=== PATIENT | female | born 1940 | race African-American/Black ===

== ENCOUNTER 2020-04-23 06:28 | Inpatient (IN) | payer MEDICARE, MEDICAID ==
[~2020-04-23] VITALS: Ht 160 cm; Wt 66.2 kg
[2020-04-23 07:50] LABS: BASOPHILS % 0.7 % (0.0-2.0); EOSINOPHILS % 3.2 % (0.0-5.0); HEMOGLOBIN. 12.6 g/dL (12.0-16.0); LYMPHOCYTES % 21.8 % (20.0-50.0); MEAN CORPUSCULAR HEMOGLOBIN 31.6 pg (28.0-32.0); MEAN CORPUSCULAR VOLUME 95.5 fL (81.0-99.0); MEAN PLATELET VOLUME 7.8 fl (7.4-10.4); MONOCYTES % 12.2 % (2.0-8.0); NEUTROPHILS % 62.1 % (40.0-76.0); PLATELET 179 x1000/uL (130-400); RED BLOOD CELL COUNT 3.98 mill/uL (4.2-5.4); RED CELL DISTRIBUTION WIDTH 15.4 % (11.6-14.6)
[2020-04-23 07:57] LABS: CHLORIDE 113 mEq/L (98-107)
[2020-04-23] MEDS ORDERED: ASPIRIN 325MG EC TABLET PO ONE (08:30)
[2020-04-23 09:27] LABS: CLARITY URINE CLOUDY (CLEAR); COLOR URINE YELLOW (YELLOW); KETONES URINE TRACE (NEGATIVE); LEUKOCYTE ESTERASE URINE 2+ (NEGATIVE); NITRITE URINE POSITIVE (NEGATIVE); OCCULT BLOOD URINE 1+ (NEGATIVE); PROTEIN URINE 1+ (NEGATIVE); SPECIFIC GRAVITY URINE 1.026 (1.005-1.030)
[2020-04-23] MEDS ORDERED: MORPHINE SULFATE 4 MG/ML CPJ (NOT FOR IM USE) IV ONE (09:30)
[2020-04-23] MEDS ORDERED: CEFTRIAXONE 1 G PREMIX 50 ML IV ONE (10:45)
[2020-04-23] MEDS ORDERED: DOCUSATE SODIUM 100MG CAPSULE PO PRN (13:30)
[2020-04-23] MEDS ORDERED: MORPHINE SULFATE 2 MG/ML CPJ (NOT FOR IM USE) IV PRN (13:30)
[2020-04-23] MEDS ORDERED: GUAIFENESIN 200MG/10ML SUGAR FREE UDC PO PRN (13:30)
[2020-04-23] MEDS ORDERED: ACETAMINOPHEN 325MG TABLET PO PRN (13:30)
[2020-04-23] MEDS ORDERED: HYDROCODONE/ACETAMINOPHEN 5/325MG TABLET PO PRN (13:30)
[2020-04-23] MEDS ORDERED: MAGNESIUM/ALUMINUM HYDROXIDE/SIMETHICONE 30ML UDC PO PRN (13:30)
[2020-04-23] MEDS ORDERED: ONDANSETRON HCL 4MG/2ML INJ IV PRN (13:30)
[2020-04-23] MEDS ORDERED: CLONIDINE 0.1MG TABLET PO PRN (13:30)
[2020-04-23] MEDS ORDERED: ENOXAPARIN 40MG/0.4ML SYR SUBCUT SCH (13:30)
[2020-04-23] MEDS ORDERED: DEXTROSE 50% WATER 50ML SYRINGE IV PRN (15:15)
[2020-04-23 15:20] VITALS: BP 149/80
[2020-04-23 16:00] VITALS: BP 149/80
[2020-04-23] MEDS: RISPERIDONE 0.25MG TABLET PO SCH (16:15)
[2020-04-23] MEDS: ENOXAPARIN 30MG/0.3ML SYR SUBCUT SCH ×2 (17:25→22:48)
[2020-04-23] MEDS: AMLODIPINE 10MG TABLET PO SCH (17:25)
[2020-04-23] MEDS: LISINOPRIL 20MG TABLET PO SCH (17:25)
[2020-04-23] MEDS: BLOOD SUGAR DIAGNOSTIC STRIP TEST SCH ×2 (17:26→21:00)
[2020-04-23 17:52] LABS: CREATINE KINASE 96 IU/L (26-192)
[2020-04-23 17:53] LABS: CREATINE KINASE MB FRACTION 1.6 ng/mL (0.5-3.6)
[2020-04-23 20:00] VITALS: BP 110/74
[2020-04-24] VITALS: BP 121/82
[2020-04-24] MEDS: BLOOD SUGAR DIAGNOSTIC STRIP TEST SCH ×3 (07:30→17:52)
[2020-04-24 07:50] LABS: BASOPHILS % 0.7 % (0.0-2.0); EOSINOPHILS % 2.5 % (0.0-5.0); HEMATOCRIT. 41.4 % (36.0-48.0); HEMOGLOBIN. 14.2 g/dL (12.0-16.0); LYMPHOCYTES % 28.6 % (20.0-50.0); MEAN CORPUSCULAR HEMOGLOBIN 32.6 pg (28.0-32.0); MEAN CORPUSCULAR VOLUME 94.9 fL (81.0-99.0); MEAN PLATELET VOLUME 8.9 fl (7.4-10.4); MONOCYTES % 11.7 % (2.0-8.0); NEUTROPHILS % 56.5 % (40.0-76.0); PLATELET 215 x1000/uL (130-400); RED BLOOD CELL COUNT 4.37 mill/uL (4.2-5.4); RED CELL DISTRIBUTION WIDTH 15.6 % (11.6-14.6)
[2020-04-24 07:55] LABS: CHLORIDE 113 mEq/L (98-107)
[2020-04-24 08:00] VITALS: BP 134/60
[2020-04-24 08:06] LABS: LDL CHOLESTEROL 110 mg/dL (5-100)
[2020-04-24 08:07] LABS: CREATINE KINASE 149 IU/L (26-192); CREATINE KINASE MB FRACTION 2.2 ng/mL (0.5-3.6); HDL CHOLESTEROL 59 mg/dL (40-59)
[2020-04-24] MEDS ORDERED: ASPIRIN 81MG EC TABLET PO SCH (09:00)
[2020-04-24] MEDS: ENOXAPARIN 30MG/0.3ML SYR SUBCUT SCH (09:00)
[2020-04-24] MEDS: LISINOPRIL 20MG TABLET PO SCH (10:29)
[2020-04-24] MEDS: RISPERIDONE 0.25MG TABLET PO SCH (10:29)
[2020-04-24] MEDS: AMLODIPINE 10MG TABLET PO SCH (10:30)
== END 2020-04-24 21:26 | disposition home or self-care (01) | DRG 203 ==
LOC: ER 06:28 → 5EST 10:41 → ENRESERV 13:08 → 5EST 23:47
PROVIDERS: ADMIT Hospitalist; ATTEND Hospitalist
DX: M94.0 Chondrocostal junction syndrome [Tietze] (principal); E11.9 Type 2 diabetes mellitus without complications; I10 Essential (primary) hypertension; F99 Mental disorder, not otherwise specified; N39.0 Urinary tract infection, site not specified; Z79.82 Long term (current) use of aspirin; Z79.1 Long term (current) use of non-steroidal anti-inflammatories (NSAID); Z79.899 Other long term (current) drug therapy; E87.8 Other disorders of electrolyte and fluid balance, not elsewhere classified
CPT/HCPCS: 36415; 71045; 80053; 80061; 81003; 82550; 82553; 82962; 83036; 83880; 84484; 85025; 93005; 93306; 93970; 99285; J0696; J1650; J2270; J2405

== ENCOUNTER 2022-12-30 22:26 | Emergency (ER) | payer MEDICARE, MEDICAID ==
[~2022-12-30] VITALS: Ht 157.5 cm; Wt 70.0 kg
[2022-12-30 23:27] LABS: BASOPHILS % 0.8 % (0.0-2.0); EOSINOPHILS % 4.2 % (0.0-5.0); HEMATOCRIT. 35.6 % (36.0-48.0); HEMOGLOBIN. 11.9 g/dL (12.0-16.0); MEAN CORPUSCULAR HEMOGLOBIN 31.9 pg (28.0-32.0); MEAN CORPUSCULAR VOLUME 95.4 fL (81.0-99.0); MEAN PLATELET VOLUME 8.9 fl (7.4-10.4); MONOCYTES % 12.7 % (2.0-8.0); NEUTROPHILS % 56.3 % (40.0-76.0); PLATELET 152 x1000/uL (130-400); RED BLOOD CELL COUNT 3.73 mill/uL (4.2-5.4); RED CELL DISTRIBUTION WIDTH 14.9 % (11.6-14.6)
[2022-12-30 23:33] LABS: CHLORIDE 114 mEq/L (98-107)
[2022-12-31 06:20] VITALS: BP 155/79
== END 2022-12-31 06:30 | disposition home or self-care (01) ==
LOC: ER 22:41
DX: R53.1 Weakness (principal); R30.0 Dysuria; E11.9 Type 2 diabetes mellitus without complications; F03.90 Unspecified dementia, unspecified severity, without behavioral disturbance, psychotic disturbance, mood disturbance, and anxiety; I10 Essential (primary) hypertension; F20.9 Schizophrenia, unspecified
CPT/HCPCS: 36415; 71045; 80053; 84484; 85025; 85610; 99284; Z7610

== ENCOUNTER 2023-01-05 22:53 | Emergency (ER) | payer MEDICARE, MEDICAID ==
[~2023-01-05] VITALS: Ht 160 cm; Wt 55.0 kg
[2023-01-06] MEDS ORDERED: KETOROLAC 30MG/ML VIAL IM ONE (03:00)
[2023-01-06 03:05] VITALS: BP 116/75
[2023-01-06 03:31] LABS: HEMOGLOBIN 11.8 g/dL (12.0-16.0); MEAN CORPUSCULAR HEMOGLOBIN 31.7 pg (28.0-32.0); MEAN CORPUSCULAR VOLUME 96.6 fL (81.0-99.0); PLATELET 178 x1000/uL (130-400); RED BLOOD CELL COUNT 3.73 mill/uL (4.2-5.4); RED CELL DISTRIBUTION WIDTH 15.5 % (11.6-14.6)
[2023-01-06 03:39] LABS: CHLORIDE 113 mEq/L (98-107)
[2023-01-06 05:24] LABS: CLARITY URINE CLOUDY (CLEAR); COLOR URINE YELLOW (YELLOW); KETONES URINE TRACE (NEGATIVE); LEUKOCYTE ESTERASE URINE TRACE (NEGATIVE); NITRITE URINE NEGATIVE (NEGATIVE); OCCULT BLOOD URINE TRACE (NEGATIVE); PROTEIN URINE TRACE (NEGATIVE); SPECIFIC GRAVITY URINE 1.022 (1.005-1.030)
[2023-01-06] MEDS ORDERED: TOPUD MT (05:41)
== END 2023-01-06 05:54 | disposition home or self-care (01) ==
LOC: ER 23:18
DX: R30.0 Dysuria (principal); I10 Essential (primary) hypertension; E11.9 Type 2 diabetes mellitus without complications; Z86.59 Personal history of other mental and behavioral disorders
CPT/HCPCS: 36415; 80053; 81003; 84484; 85027; 93005; 96372; 99284; J1885; Z7610

== ENCOUNTER 2023-11-08 00:24 | Emergency (ER) | payer MEDICARE, MEDICAID ==
[~2023-11-08] VITALS: Ht 160 cm; Wt 50.0 kg
[~2023-11-08 00:24] MED LIST: TOPUD MT
[2023-11-08 00:28] VITALS: BP 103/66; PULSE 77; RESP 16; TEMP 97; O2SAT 99
[2023-11-08] MEDS ORDERED: ACETAMINOPHEN 325MG TABLET PO ONE (00:45)
[2023-11-08] MEDS ORDERED: MORPHINE SULFATE 2 MG/ML CPJ (NOT FOR IM USE) IV ONE (00:45)
[2023-11-08 01:12] LABS: HEMATOCRIT. 34.8 % (36.0-48.0); HEMOGLOBIN. 11.1 g/dL (12.0-16.0); MEAN CORPUSCULAR HEMOGLOBIN 31.7 pg (28.0-32.0); MEAN CORPUSCULAR HGB CONC 31.8 g/dL (31.0-37.0); MEAN CORPUSCULAR VOLUME 99.6 fL (81.0-99.0); MEAN PLATELET VOLUME 8.8 fl (7.4-10.4); PLATELET 198 x1000/uL (130-400); RED BLOOD CELL COUNT 3.49 mill/uL (4.2-5.4); RED CELL DISTRIBUTION WIDTH 15.7 % (11.6-14.6); WHITE BLOOD COUNT 5.1 x1000/uL (4.5-11.0)
[2023-11-08 01:25] LABS: DIFFERENTIAL COMMENT 1
[2023-11-08 01:27] LABS: ALANINE AMINOTRANSFERASE 12 IU/L (10-49); ALBUMIN 3.8 g/dL (3.2-4.8); ASPARTATE AMINOTRANSFERASE 37 IU/L (<34); BILIRUBIN TOTAL 0.3 mg/dL (0.1-1.0); CALCIUM 10.6 mg/dL (8.7-10.4); CARBON DIOXIDE 24 mEq/L (21-32); CHLORIDE 111 mEq/L (98-107); GLUCOSE 67 mg/dL (70-105); POTASSIUM 5.1 mEq/L (3.5-5.1); PROTEIN TOTAL 6.9 g/dL (6.0-8.3); SODIUM 140 mEq/L (136-145); TROPONIN I HIGH SENSITIVITY 23 ng/L (3.0-34); UREA NITROGEN BLOOD 21 mg/dL (9-23)
[2023-11-08 01:36] LABS: ETHANOL BLOOD < 10 mg/dL (<10)
[2023-11-08 04:02] LABS: PLATELET ESTIMATE NORMAL
[2023-11-08] MEDS ORDERED: MORPHINE SULFATE 2 MG/ML CPJ (NOT FOR IM USE) IV NR (04:30)
[2023-11-08] MEDS ORDERED: ACETAMINOPHEN 325MG TABLET PO NR (04:30)
[2023-11-08 04:34] LABS: TROPONIN I HIGH SENSITIVITY 20 ng/L (3.0-34)
[2023-11-08] MEDS ORDERED: MORPHINE SULFATE 10 MG/ML CPJ IM ONE (04:45)
[2023-11-08] MEDS ORDERED: ACET-2708 MT (05:17)
== END 2023-11-08 11:50 | disposition home or self-care (01) ==
LOC: ER 00:24
DX: M25.512 Pain in left shoulder (principal); M25.511 Pain in right shoulder; M19.90 Unspecified osteoarthritis, unspecified site; I10 Essential (primary) hypertension; F20.9 Schizophrenia, unspecified
CPT/HCPCS: 80053; 80320; 83880; 83690; 85025; 84484; 36415; 71045; 93005; 96372; 99285; J2270; G0480

== ENCOUNTER 2024-04-18 15:27 | Emergency (ER) | payer MEDICARE, MEDICAID ==
[~2024-04-18] VITALS: Ht 165.1 cm; Wt 57.0 kg
[~2024-04-18 15:27] MED LIST changes: +CHOL500051 PO; +CYAN-50 PO; +HYDR-3992 PO; +MIRT-89 PO; +NITR-87 MT; +QUET25TA36 PO; +RISP0.2514 PO; -TOPUD MT
[2024-04-18 15:32] VITALS: O2SAT 100
[2024-04-18 17:19] LABS: BASOPHILS % 0.7 % (0.0-2.0); EOSINOPHILS % 3.5 % (0.0-5.0); HEMATOCRIT. 36.3 % (36.0-48.0); HEMOGLOBIN. 11.8 g/dL (12.0-16.0); MEAN CORPUSCULAR HEMOGLOBIN 30.7 pg (28.0-32.0); MEAN CORPUSCULAR HGB CONC 32.5 g/dL (31.0-37.0); MEAN CORPUSCULAR VOLUME 94.5 fL (81.0-99.0); MEAN PLATELET VOLUME 8.7 fl (7.4-10.4); MONOCYTES % 8.2 % (2.0-8.0); NEUTROPHILS % 57.6 % (40.0-76.0); PLATELET 160 x1000/uL (130-400); RED BLOOD CELL COUNT 3.84 mill/uL (4.2-5.4); RED CELL DISTRIBUTION WIDTH 14.5 % (11.6-14.6); WHITE BLOOD COUNT 4.2 x1000/uL (4.5-11.0)
[2024-04-18 17:25] LABS: CHLORIDE 111 mEq/L (98-107); SODIUM 141 mEq/L (136-145)
[2024-04-18 17:26] LABS: CALCIUM 11.3 mg/dL (8.7-10.4); CARBON DIOXIDE 24 mEq/L (21-32)
[2024-04-18 17:31] LABS: GLUCOSE 84 mg/dL (70-105); UREA NITROGEN BLOOD 21 mg/dL (9-23)
[2024-04-18 17:32] LABS: TROPONIN I HIGH SENSITIVITY 4 ng/L (3.0-34)
[2024-04-18 17:33] LABS: ALANINE AMINOTRANSFERASE 12 IU/L (10-49); ALBUMIN 4.6 g/dL (3.2-4.8); ASPARTATE AMINOTRANSFERASE 21 IU/L (<34); BILIRUBIN TOTAL 0.6 mg/dL (0.1-1.0); PROTEIN TOTAL 7.8 g/dL (6.0-8.3)
[2024-04-18] MEDS: IBUPROFEN 600MG TABLET PO ONE (17:34)
[2024-04-18 21:21] VITALS: BP 136/78; PULSE 74; RESP 19; TEMP 98
== END 2024-04-18 21:29 | disposition home or self-care (01) ==
LOC: ER 15:27
DX: R00.2 Palpitations (principal); M79.10 Myalgia, unspecified site; M19.012 Primary osteoarthritis, left shoulder; M19.011 Primary osteoarthritis, right shoulder; I10 Essential (primary) hypertension; F20.9 Schizophrenia, unspecified; Z79.899 Other long term (current) drug therapy; Z20.822 Contact with and (suspected) exposure to COVID-19
CPT/HCPCS: 36415; 71045; 80053; 84484; 85025; 87426; 93005; 99285

== ENCOUNTER 2024-10-09 18:56 | Emergency (ER) | payer MEDICARE, MEDICAID ==
[~2024-10-09] VITALS: Ht 167.6 cm; Wt 71.0 kg
[~2024-10-09 18:56] MED LIST changes: -HYDR-3992 PO; -NITR-87 MT
[2024-10-09 19:00] VITALS: BP 131/74; PULSE 79; RESP 18; TEMP 98.4; O2SAT 95
== END 2024-10-09 19:06 | disposition home or self-care (01) ==
LOC: ER 18:56
DX: R05.9 Cough, unspecified (principal); I10 Essential (primary) hypertension; Z79.899 Other long term (current) drug therapy; Z86.59 Personal history of other mental and behavioral disorders
CPT/HCPCS: 71045; 99283